=== PATIENT | female | born 1975 | race Caucasian/White ===

== ENCOUNTER 2023-01-09 04:20 | Day surgery (SDC) | payer BC, OTHER ==
[2023-01-05 11:19] VITALS: BMI 26.2
[2023-01-09 08:15] VITALS: PULSE 63
[2023-01-09 09:45] VITALS: BP 110/57; RESP 13
[2023-01-09 10:36] VITALS: TEMP 98.3
== END 2023-01-09 10:00 | disposition home or self-care (01) ==
LOC: JASU-ENDO 04:20
PROVIDERS: ATTEND Internal Medicine Gastroenterology
PROC: 0DJD8ZZ Inspection of Lower Intestinal Tract, Via Natural or Artificial Opening Endoscopic (ICD-10-PCS; principal; 2023-01-09 09:00)
DX: Z12.11 Encounter for screening for malignant neoplasm of colon (principal); K64.8 Other hemorrhoids
CPT/HCPCS: 81025